=== PATIENT | male | born 1960 | race Caucasian/White ===

== ENCOUNTER 2017-06-17 22:53 | Emergency (ER) | payer MEDICAID ==
[~2017-06-17] VITALS: Ht 193 cm; Wt 102.1 kg
[~2017-06-17 22:53] MED LIST: ALBU0.5N2; CITA-30; RIMRON
[2017-06-17 23:07] VITALS: BP 152/96
[2017-06-17 23:58] LABS: Basophils # (auto) 0.1 uL; Eosinophils # (auto) 0.1 uL; Eosinophils % (auto) 0.7 % (0.0-7.0); Hematocrit 48.3 % (41.0-53.0); Hemoglobin 16.1 g/dL (13.5-17.5); Lymphocytes # (auto) 1.2 uL; Lymphocytes % (auto) 9.1 % (10.0-50.0); Mean Corpuscular Hemoglobin 29.8 pg (28.0-32.0); Mean Corpuscular Hgb Conc. 33.3 g/dL (32.0-36.0); Mean Corpuscular Volume 89.4 fL (80.0-100.0); Mean Platelet Volume 7.8 fL (6.9-10.8); Monocytes # (auto) 1.1 uL; Neutrophils # (auto) 10.7 uL; Neutrophils % (auto) 81.2 % (37.0-80.0); Platelet Count (auto) 359 10^3/uL (140-450); Red Cell Distribution Width 13.7 % (11.8-14.3); White Blood Cell 13.2 10^3/uL (4.4-10.8)
[2017-06-18 00:12] LABS: BUN/Creatinine Ratio 14.7; Calcium 9.6 mg/dL (8.5-10.1); Potassium 4.2 mmol/L (3.5-5.1)
[2017-06-18 00:14] LABS: INR 0.97 (0.9-1.15); Partial Thromboplastin Time 24.7 sec (22.64-33.71); Prothrombin Time 10.6 sec (9.37-12.3)
[2017-06-18 00:15] LABS: Bilirubin, Total 1.4 mg/dL (0.2-1.0); Total Protein 8.3 g/dL (6.4-8.2)
[2017-06-18 02:03] LABS: Urine Bilirubin Negative (Negative); Urine Blood Negative /uL (Negative); Urine Color Yellow (Yellow); Urine Glucose Normal (Normal); Urine Ketone TRACE (Negative); Urine Mucus FEW (None Seen); Urine Nitrite Negative (Negative); Urine RBC 1 /hpf (0 - 3); Urine Urobilinogen Normal (Negative); Urine pH 5.5 (5.0-8.0)
== END 2017-06-18 05:34 | disposition left against medical advice (07) ==
LOC: ER 22:56
DX: R10.84 Generalized abdominal pain (principal); Z53.21 Procedure and treatment not carried out due to patient leaving prior to being seen by health care provider
CPT/HCPCS: 36415; 74176; 80053; 81001; 82150; 83690; 85025; 85610; 85730

== ENCOUNTER 2020-02-29 19:57 | Emergency (ER) | payer MEDICAID ==
[~2020-02-29] VITALS: Ht 193 cm; Wt 102.1 kg
[~2020-02-29 19:57] MED LIST changes: -CITA-30; -RIMRON
[2020-02-29] MEDS ORDERED: SODIUM CHLORIDE 0.9% 1,000 ML IV ONE (20:30)
[2020-02-29] MEDS ORDERED: GLUCAGON HYDROCHLORIDE (RDNA) 1 MG VIAL IV ONE (20:30)
[2020-02-29] MEDS ORDERED: diphenhdrAMINE HCL 50 MG/1 ML VL ONE (23:03)
[2020-02-29] MEDS ORDERED: HYDROcodone-ACET 10/325MG TAB PO ONE (23:15)
[2020-02-29] MEDS: MIDAZOLAM HCL 5 MG/ML-1ML VIAL ONE ×3 (23:17→23:23)
[2020-02-29] MEDS: fentaNYL CITRATE 100 MCG/2 ML VL ONE ×2 (23:17→23:20)
[2020-03-01 01:40] VITALS: BP 138/83
== END 2020-03-01 01:50 | disposition home or self-care (01) ==
LOC: ER 20:02
DX: T18.128A Food in esophagus causing other injury, initial encounter (principal); J44.9 Chronic obstructive pulmonary disease, unspecified; Z79.899 Other long term (current) drug therapy; X58.XXXA Exposure to other specified factors, initial encounter; Y93.89 Activity, other specified; Y92.89 Other specified places as the place of occurrence of the external cause; Y99.8 Other external cause status
CPT/HCPCS: 43247; 96361; 96374; 99152; 99285; J1200; J1610; J2250; J3010; 43235

== ENCOUNTER 2025-06-11 12:02 | Inpatient (IN) | payer MEDICAID ==
[~2025-06-11] VITALS: Ht 193 cm; Wt 90.1 kg
[2025-06-11] MEDS: IPRATROPIUM BROM 0.5 MG/2.5ML INH SOL NEB ONE (12:44)
[2025-06-11] MEDS: ALBUTEROL SULF 2.5 MG/0.5ML(0.5%) NEB SOLN NEB ONE (12:45)
--- NOTE | 2025-06-11 12:56 | ED.PDOC ---
SOB-HPI HPI Comments This is a 64 year old male presenting to the ED with chief complaint of SOB. Patient reports that he has been experiencing SOB with associated coughing, chest pain, dizziness, and lightheadedness for the past 3 days. Patient noted to be 90% on RA. Patient states that he has history of COPD and CHF. Patient denies any N/V, fever, chills, headache, or syncope. Chief Complaint: Shortness of Breath Time Seen by MD: 12:52 Primary Care Provider: unk Reviewed notes: Nurses Notes, Medications, Allergies Information Source: Patient, Relative (Child) Mode of Arrival: Ambulatory Severity: Moderate Timing: Days Duration: Since onset Context: At Rest PE Risk Factors: None History of: COPD, CHF Prehospital treatment: None Modifying Factors: Nothing Associated Signs and Symptoms: Chest Pain Quality: Tightness Radiation: No Radiation Location: Substernal Past Medical History PAST MEDICAL HISTORY: Asthma, CHF, COPD Surgical History: Denies all surgeries Family History Family History: Reviewed,noncontributory to illness Social History Smoker: Non-Smoker Alcohol: Denies ETOH Use Drugs: Denies Drug Use Lives In: Home Constitutional: denies: chills, diaphoresis, fatigue, fever, malaise, sweats, weakness, others EENTM: denies: blurred vision, double vision, ear bleeding, ear discharge, ear drainage, ear pain, ear ringing, eye pain, eye redness, hearing loss, mouth pain, mouth swelling, nasal discharge, nose bleeding, nose congestion, nose pain, photophobia, tearing, throat pain, throat swelling, voice changes, others Respiratory: reports: cough, shortness of breath; denies: hemoptysis, orthopnea, SOB at rest, SOB with excertion, stridor, wheezing, others Cardiovascular: reports: chest pain, lightheadedness; denies: dizzy spells, diaphoresis, Dyspnea on exertion, edema, irregular heart beat, left arm pain, palpitations, PND, syncope, others Gastrointestinal: denies: abdomen distended, abdominal pain, blood streaked bowels, constipated, diarrhea, dysphagia, difficulty swallowing, hematemesis, melena, nausea, poor appetite, poor fluid intake, rectal bleeding, rectal pain, vomiting, others Genitourinary: denies: burning, dysuria, flank pain, frequency, hematuria, incontinence, penile discharge, penile sore, pain, testicle pain, testicle swelling, urgency, others Neurological: reports: dizziness; denies: fainting, headache, left sided numbness, left sided weakness, numbness, paresthesia, pre-existing deficit, right sided numbness, right sided weakness, seizure, speech problems, tingling, tremors, weakness, others Musculoskeletal: denies: back pain, gout, joint pain, joint swelling, muscle pain, muscle stiffness, neck pain, others Integumetry: denies: bruises, change in color, change in hair/nails, dryness, laceration, lesions, lumps, rash, wounds, others Allergic/Immunocompromised: denies: Difficulty Healing, Frequent Infections, Hives, Itching, others Hematologic/Lymphatic: denies: anemia, blood clots, easy bleeding, easy bruising, swollen glands, others Endocrine: denies: excessive hunger, excessive sweating, excessive thirst, excessive urination, flushing, intolerance to cold, intolerance to heat, unexplained weight gain, unexplained weight loss, others Psychiatric: denies: anxiety, bipolar disorder, depression, hopeless, panic disorder, schizophrenia, sleepless, suicidal, others All Other Systems: Reviewed and Negative Physical Exam General Appearance: No Apparent Distress, Normal HEENT: Normal ENT Inspection, Pharynx Normal, TMs Normal Neck: Full Range of Motion, Non-Tender, Normal, Normal Inspection Respiratory: Chest Non-Tender, Lungs Clear, No Accessory Muscle Use, Wheezing, Other (Tachypneic, Coarse breath sounds) Cardiovascular: No Edema, No JVD, No Murmur, No Gallop, Normal Peripheral Pulses, Tachycardia Breast Exam: Deferred Gastrointestinal: No Organomegaly, Non Tender, No Pulsatile Mass, Normal Bowel Sounds, Soft Genitalia: Deferred Pelvic: Deferred Rectal: Deferred Extremities: No calf tenderness, Normal capillary refill, Normal inspection, Normal range of motion, Non-tender, No pedal edema Musculoskeletal : Apperance: Normal Neurologic: Alert, net web application developer II-XII nml as Tested, No Motor Deficits, Normal Affect, Normal Mood, No Sensory Deficits Cerebellar Function: Normal Reflexes: Normal Skin: Dry, Normal Color, Warm Lymphatic: No Adenopathy Was a procedure done? Was a procedure done?: No Differential Dx Differential Diagnosis: CHF, COPD, Pneumonia X-Ray, Labs, Meds, VS Vital Signs Date Time Temp Pulse Resp B/P (MAP) Pulse Ox O2 Delivery O2 Flow Rate FiO2 06/11/25 13:00 98.0 95 20 124/70 (88) 96 98.0 06/11/25 13:00 101 20 94 Nasal Cannula* 2 28 06/11/25 12:47 24 90 Nasal Cannula* 2 28 06/11/25 12:23 98 06/11/25 12:04 97.8 100 20 134/89 90 97.8 Lab Test 06/11/25 13:54 06/11/25 13:42 06/11/25 12:36 Range/Units Influenza Type A Antigen Negative Negative Influenza Type B Antigen Negative Negative SARS-CoV-2 Antigen (Rapid) Negative NEGATIVE Troponin I High Sensitivity 25 23 </=54 ng/L White Blood Count 6.1 4.4-10.8 10^3/uL Red Blood Count 5.29 4.5-5.90 10^6/uL Hemoglobin 15.6 13.5-17.5 g/dL Hematocrit 47.0 41.0-53.0 % Mean Corpuscular Volume 88.9 80.0-100.0 fL Mean Corpuscular Hemoglobin 29.6 28.0-32.0 pg Mean Corpuscular Hemoglobin Concent 33.2 32.0-36.0 g/dL Red Cell Distribution Width 13.9 11.8-14.3 % Platelet Count 372 140-450 10^3/uL Mean Platelet Volume 7.3 6.9-10.8 fL Neutrophils (%) (Auto) 69.6 37.0-80.0 % Lymphocytes (%) (Auto) 13.9 10.0-50.0 % Monocytes (%) (Auto) 13.5 H 0.0-12.0 % Eosinophils (%) (Auto) 2.0 0.0-7.0 % Basophils (%) (Auto) 1.0 0.0-2.0 % Neutrophils # (Auto) 4.3 1.6-8.6 10 ^3/uL Lymphocytes # (Auto) 0.8 0.4-5.4 10 ^3/uL Monocytes # (Auto) 0.8 0-1.3 10 ^3/uL Eosinophils # (Auto) 0.1 0-0.8 10 ^3/uL Basophils # (Auto) 0.1 0-0.2 10 ^3/uL Nucleated Red Blood Cells 0.2 % Sodium Level 141 136-145 mmol/L Potassium Level 4.6 3.5-5.1 mmol/L Chloride Level 100 98-107 mmol/L Carbon Dioxide Level 32 H 20-31 mmol/L Anion Gap 9 5-15 Blood Urea Nitrogen 16 9-23 mg/dL Creatinine 1.55 H 0.700-1.30 mg/dL Glomerular Filtration Rate Calc 50 >90 mL/min BUN/Creatinine Ratio 10.3 10.0-20.0 Serum Glucose 98 74-106 mg/dL Calcium Level 8.8 8.7-10.4 mg/dL B-Type Natriuretic Peptide 52.01 0-100 pg/mL Current Medications Medications (Trade) Dose Ordered Sig/Rubens Route Start Time Stop Time Status Last Admin Albuterol (Ventolin Medneb) 5 mg ONCE ONCE NEB 06/11/25 12:30 06/11/25 12:31 DC 06/11/25 12:45 Ipratropium [place] (Atrovent Medneb) 0.5 mg ONCE ONCE NEB 06/11/25 12:30 06/11/25 12:31 DC 06/11/25 12:44 Guaifenesin/ Dextromethorphan (Robitussin-Dm Liquid) 10 ml Q4HP PRN PO 06/11/25 13:45 06/11/25 13:48 Methylprednisolone Sodium Succinate (Solu Medrol) 125 mg ONCE ONCE IV 06/11/25 14:00 06/11/25 14:01 DC 06/11/25 13:57 Time of 1ST Reevaluation: 13:50 Reevaluation 1ST: Improved Patient Education/Counseling: Diagnosis, Treatment Family Education/Counseling: No Family Present SEPSIS Sepsis Screen Date sepsis recognized/suspect: Jun 11, 2025 Time Sepsis recognized/suspect: 1206 Recent Procedure: No On Antibiotic Therapy: No Respiratory Rate >20: No Heart Rate >90: Yes Temp<36 C (96.8 F) or >38.3 C: No SBP <90 or MAP <65 mmHG: No New Acute Mental Status Change: No Is the patient on CPAP, BIPAP,: No Physician Orders Chest Portable (06/11/25 12:20) Electrocardigram (06/11/25 12:20) Troponin-I Hs (06/11/25 15:20) Electrocardigram (06/11/25 13:20) Electrocardigram (06/11/25 15:20) Guaifenesin-Dextromet Liquid (Robitussin (06/11/25 13:45) Vital Signs Date Time Temp Pulse Resp B/P (MAP) Pulse Ox O2 Delivery O2 Flow Rate FiO2 06/11/25 13:00 98.0 95 20 124/70 (88) 96 98.0 06/11/25 13:00 101 20 94 Nasal Cannula* 2 28 06/11/25 12:47 24 90 Nasal Cannula* 2 28 06/11/25 12:23 98 06/11/25 12:04 97.8 100 20 134/89 90 97.8 Laboratory Tests Test 06/11/25 12:36 White Blood Count 6.1 10^3/uL (4.4-10.8) Medications Medications Dose Ordered Sig/Rubens Route Start Time Stop Time Status Last Admin Dose Admin Albuterol 5 mg ONCE ONCE NEB 06/11/25 12:30 06/11/25 12:31 DC 06/11/25 12:45 Guaifenesin/ Dextromethorphan 10 ml Q4HP PRN PO 06/11/25 13:45 06/11/25 13:48 Ipratropium [place] 0.5 mg ONCE ONCE NEB 06/11/25 12:30 06/11/25 12:31 DC 06/11/25 12:44 Methylprednisolone Sodium Succinate 125 mg ONCE ONCE IV 06/11/25 14:00 06/11/25 14:01 DC 06/11/25 13:57 Departure 1 Departure Time of Disposition: 16:09 (Patient presented with acute shortness of breath concerning for acute on chronic COPD Exacerbation, Pneumonia, ACS, CHF, Pneumothorax. Less likely PE, Dissection. Data: 1. I ordered and reviewed the result of at least 3 labs including a CBC, BMP, and Troponin. 2. I independently interpreted the following tests: Chest X-ray shows .Risk:This patient has a high risk of morbidity due to further diagnostic testing or treatment and may suffer from respiratory or cardiac etiology . Workup reveals a likely COPD Exacerbation and patient should be admitted for further workup. and possible expert consultation.) Impression: Primary Impression: Acute and chronic respiratory failure Additional Impressions: Acute on chronic systolic heart failure Dyspnea on exertion COPD (chronic obstructive pulmonary disease) Disposition: 09 ADMITTED INPATIENT Admit to: Tele Condition: Guarded Critical Care Note Critical Care Time?: Yes Critical care comment: Acute on chronic respiratory failure Authorized and Performed by: Rodney Silva MD Total critical care time: Approximately 38 minutes Due to a high probability of clinically significant, life threatening deterioration, the patient required my highest level of preparedness to intervene emergently and I personally spent this critical care time directly and personally managing the patient. This critical care time included obtaining a history; examining the patient; pulse oximetry; ordering and review of studies; arranging urgent treatment with development of a management plan; evaluation of patient's response to treatment; frequent reassessment; and, discussions with other providers. This critical care time was performed to assess and manage the high probability of imminent, life-threatening deterioration that could result in multi-organ failure. It was exclusive of separately billable procedures and treating other patients and teaching time. Please see my other sections and the rest of the note for further information on patient assessment and treatment. Stability Stability form required: No Heart Score Heart Score: Heart Score Response (Comments) Value History Highly Suspicious 2 EKG Normal 0 Age 45-64 1 Risk Factors >3 or Hx ASHD 2 Troponin 1-2 x's Normal limit 1 Total 6 I personally scribed for RODNEY SILVA MD ([email or web address]) on 06/11/25 at 12:55. Electronically submitted by Gibson Parker ([email or web address]). RODNEY SILVA MD Jun 11, 2025 12:55
[2025-06-11 13:00] VITALS: PULSE 101; RESP 20; O2SAT 94
[2025-06-11 13:00] LABS: Hematocrit 47.0 % (41.0-53.0); Hemoglobin 15.6 g/dL (13.5-17.5); Mean Corpuscular Hemoglobin 29.6 pg (28.0-32.0); Mean Corpuscular Volume 88.9 fL (80.0-100.0); Nucleated Red Blood Cells % 0.2 %
[2025-06-11 13:05] LABS: Chloride 100 mmol/L (98-107); Potassium 4.6 mmol/L (3.5-5.1); Sodium 141 mmol/L (136-145)
[2025-06-11 13:06] LABS: Anion Gap 9 (5-15)
[2025-06-11 13:07] LABS: Calcium 8.8 mg/dL (8.7-10.4)
--- NOTE | 2025-06-11 13:08 | DVH ---
EXAM: XY CHEST PORTABLE HISTORY: sob COMPARISON: None TECHNIQUE: Portable upright AP view of the chest was performed. FINDINGS: No pneumothorax, consolidative infiltrates, or pulmonary edema. There is mild central peribronchial thickening. The heart is borderline enlarged. IMPRESSION: Mild Reactive airways disease. The lungs are otherwise clear.
[2025-06-11 13:09] LABS: Carbon Dioxide 32 mmol/L (20-31)
[2025-06-11 13:11] LABS: BUN/Creatinine Ratio 10.3 (10.0-20.0); Blood Urea Nitrogen 16 mg/dL (9-23); Glucose 98 mg/dL (74-106)
[2025-06-11] MEDS: guaiFENesin-DM 100/10mg/5ml SYR PO PRN (13:48)
[2025-06-11] MEDS: methylPREDNISolone SOD SUCC 125 MG/2 ML VL IV ONE (13:57)
[2025-06-11] MEDS: guaiFENesin-DM 100/10mg/5ml SYR ONE (14:31)
[2025-06-11 15:24] LABS: COVID19 ANTIGEN SOFIA FIA NEGATIVE (NEGATIVE)
[2025-06-11 16:49] VITALS: BP 136/77; PULSE 94; RESP 18; TEMP 98; O2SAT 98
--- NOTE | 2025-06-11 20:16 | DVHHPRES ---
History of Present Illness Resident Creating Document: LATOYA PAK RESIDENT History of Present Illness 64 year old male with PMH of CHF, COPD presented to the ED with chief complaint of dyspnea. He reported that he has been experiencing SOB with associated coughing, chest pain, dizziness, and lightheadedness for the past 3 days. Pt is currently on 2L o2 through nasal canula. He mentioned associated orthopnea. He described his chest pain as sharp, substernal, non radiating, increased on deep breathing. He denied any fever, chills, headache, or syncope. Past Medical History Asthma, CHF, COPD Surgical History: Denies recent surgery Family History noncontributory to illness Social History denied smoking, alcohol, marijuana Medication history albuterol Review of Systems Review of Systems as described in the HPI Allergies: Coded Allergies: NO KNOWN ALLERGIES (Unverified , 11/11/10) Medications Current Medications Medications Dose Ordered Sig/Rubens Route Start Time Stop Time Status Last Admin Dose Admin Guaifenesin/ Dextromethorphan 10 ml Q4HP PRN PO 06/11/25 13:45 06/11/25 18:53 10 ML Albuterol 2.5 mg Q4HPRN PRN NEB 06/11/25 16:45 Ipratropium [place] 0.5 mg Q4HPRN PRN NEB 06/11/25 16:45 Ceftriaxone Sodium 50 ml @ 100 mls/hr DAILY@09 IV 06/12/25 09:00 Methylprednisolone Sodium Succinate 40 mg BID IV 06/11/25 22:00 Exam Vital Signs Vital Signs Date Time Temp Pulse Resp B/P (MAP) Pulse Ox O2 Delivery O2 Flow Rate FiO2 06/11/25 19:30 98.8 103 23 156/101 (119) 97 98.8 06/11/25 16:49 2.0 28 06/11/25 13:00 Nasal Cannula* Exam Examination General Appearance: Alert, Oriented X3, Cooperative, No acute distress HEENT: EOMI Respiratory: End expiratory wheezing Cardiovascular: Regular rate, Normal S1, Normal S2 Abdominal: Normal bowel sounds Extremities: No cyanosis, No edema, Normal pulses, No tenderness/swelling Skin: No rashes, No breakdown Neuro: Normal gait, Normal speech, Strength at 5/5 X4 ext, Normal tone, Sensation intact, Cranial nerves 3-12 NL, Reflexes 2+ Psych/Mental Status: Mental status NL, Mood NL Labs/Xrays Labs Test 06/11/25 18:40 06/11/25 16:58 06/11/25 13:54 06/11/25 12:36 Range/Units Troponin I High Sensitivity 21 </=54 ng/L B-Type Natriuretic Peptide 43.32 0-100 pg/mL Influenza Type A Antigen Negative Negative Influenza Type B Antigen Negative Negative SARS-CoV-2 Antigen (Rapid) Negative NEGATIVE White Blood Count 6.1 4.4-10.8 10^3/uL Red Blood Count 5.29 4.5-5.90 10^6/uL Hemoglobin 15.6 13.5-17.5 g/dL Hematocrit 47.0 41.0-53.0 % Mean Corpuscular Volume 88.9 80.0-100.0 fL Mean Corpuscular Hemoglobin 29.6 28.0-32.0 pg Mean Corpuscular Hemoglobin Concent 33.2 32.0-36.0 g/dL Red Cell Distribution Width 13.9 11.8-14.3 % Platelet Count 372 140-450 10^3/uL Mean Platelet Volume 7.3 6.9-10.8 fL Neutrophils (%) (Auto) 69.6 37.0-80.0 % Lymphocytes (%) (Auto) 13.9 10.0-50.0 % Monocytes (%) (Auto) 13.5 H 0.0-12.0 % Eosinophils (%) (Auto) 2.0 0.0-7.0 % Basophils (%) (Auto) 1.0 0.0-2.0 % Neutrophils # (Auto) 4.3 1.6-8.6 10 ^3/uL Lymphocytes # (Auto) 0.8 0.4-5.4 10 ^3/uL Monocytes # (Auto) 0.8 0-1.3 10 ^3/uL Eosinophils # (Auto) 0.1 0-0.8 10 ^3/uL Basophils # (Auto) 0.1 0-0.2 10 ^3/uL Nucleated Red Blood Cells 0.2 % Sodium Level 141 136-145 mmol/L Potassium Level 4.6 3.5-5.1 mmol/L Chloride Level 100 98-107 mmol/L Carbon Dioxide Level 32 H 20-31 mmol/L Anion Gap 9 5-15 Blood Urea Nitrogen 16 9-23 mg/dL Creatinine 1.55 H 0.700-1.30 mg/dL Glomerular Filtration Rate Calc 50 >90 mL/min BUN/Creatinine Ratio 10.3 10.0-20.0 Serum Glucose 98 74-106 mg/dL Calcium Level 8.8 8.7-10.4 mg/dL SEPSIS Sepsis Screen Date sepsis recognized/suspect: Jun 11, 2025 Time Sepsis recognized/suspect: 1205 Recent Procedure: No On Antibiotic Therapy: No Respiratory Rate >20: No Heart Rate >90: Yes Temp<36 C (96.8 F) or >38.3 C: No SBP <90 or MAP <65 mmHG: No New Acute Mental Status Change: No Is the patient on CPAP, BIPAP,: No Physician Orders Chest Portable (06/11/25 12:20) Electrocardigram (06/11/25 12:20) Electrocardigram (06/11/25 13:20) Electrocardigram (06/11/25 15:20) Guaifenesin-Dextromet Liquid (Robitussin (06/11/25 13:45) Cardiac Diet-2gna,Lofat,Lochol (06/11/25 Dinner) Admit (06/11/25 16:38) Allergies (06/11/25 16:38) Code Status (06/11/25 16:38) Complete Blood Count (06/12/25 04:00) Comprehensive Metabolic Panel (06/12/25 04:00) Pt Request For Service (06/11/25 16:38) Oxygen By Nasal Cannula (06/11/25 16:38) Stat Ekg For Chest Pain (06/11/25 16:38) Notify Md Of Changes From Base (06/11/25 16:38) Revival Clerk For 24 Hours (06/11/25 16:38) Emergency Dysrhythmia Protocol (06/11/25 16:38) Rhythm Strips Once Every Shift (06/11/25 16:38) Albuterol Medneb (Ventolin Medneb) (06/11/25 16:45) Ipratropium Medneb (Atrovent Medneb) (06/11/25 16:45) Ceftriaxone 1gm/50ml (Rocephin) (06/12/25 09:00) Methylprednisolone Sod Succ (Solu Medrol (06/11/25 22:00) Mrsa Screen (06/11/25 16:38) Rapid Influenza A&B (06/11/25 16:38) Urinalysis (06/11/25 16:38) Drug Screen (06/11/25 16:38) D-Dimer (06/11/25 20:13) Vital Signs Date Time Temp Pulse Resp B/P (MAP) Pulse Ox O2 Delivery O2 Flow Rate FiO2 06/11/25 19:30 98.8 103 23 156/101 (119) 97 98.8 06/11/25 17:00 98.2 96 18 150/94 (112) 99 98.2 06/11/25 16:49 98.0 94 18 136/77 98 2.0 28 98.0 06/11/25 16:00 97 06/11/25 15:00 94 18 136/77 (96) 98 06/11/25 13:00 98.0 95 20 124/70 (88) 96 98.0 06/11/25 13:00 101 20 94 Nasal Cannula* 2 28 06/11/25 12:47 24 90 Nasal Cannula* 2 28 06/11/25 12:23 98 Laboratory Tests Test 06/11/25 12:36 White Blood Count 6.1 10^3/uL (4.4-10.8) Medications Medications Dose Ordered Sig/Rubens Route Start Time Stop Time Status Last Admin Dose Admin Albuterol 5 mg ONCE ONCE NEB 06/11/25 12:30 06/11/25 12:31 DC 06/11/25 12:45 5 MG Ceftriaxone Sodium 50 ml @ 100 mls/hr ONCE ONCE IV 06/11/25 16:45 06/11/25 17:14 DC 06/11/25 18:47 100 MLS/HR Guaifenesin/ Dextromethorphan 10 ml Q4HP PRN PO 06/11/25 13:45 06/11/25 18:53 10 ML Ipratropium [place] 0.5 mg ONCE ONCE NEB 06/11/25 12:30 06/11/25 12:31 DC 06/11/25 12:44 0.5 MG Methylprednisolone Sodium Succinate 125 mg ONCE ONCE IV 06/11/25 14:00 06/11/25 14:01 DC 06/11/25 13:57 125 MG Assessment/Plan Assessment/Plan Assessment/plan # Acute hypoxic resp failure due to COPD exacerbation # Acute COPD exacerbation Albuterol/ipratropium p.r.n. IV methylprednisolone IV ceftriaxone D-dimer to rule out PE # ?MIRTA over CKD monitor kidney function Avoiding IV fluids because of possible CHF exacerbation # CHF, stable. ?exacerbation Resume home meds echo bnp # Hypertension Resume home meds DVT prophylaxis lovenox Code status discussed for >21 min, full code Case discussion with Plan discussed with: Patient, Other My Orders Orders - LATOYA PAK RESIDENT Procedure Category Date Status Time Admit ADMIT 06/11/25 Transmitted 16:38 Allergies KRISTEL 06/11/25 In Process 16:38 Code Status CODE 06/11/25 Transmitted 16:38 Complete Blood Count LAB 06/12/25 Verified 04:00 Comprehensive LAB 06/12/25 Verified Metabolic Panel 04:00 Pt Request For Service PT 06/11/25 Logged 16:38 Oxygen By Nasal RT 06/11/25 Transmitted Cannula 16:38 Stat Ekg For Chest KRISTEL 06/11/25 In Process Pain 16:38 Notify Of Changes KRISTEL 06/11/25 In Process From Base 16:38 Revival Clerk For KRISTEL 06/11/25 In Process 24 Hours 16:38 Emergency Dysrhythmia KRISTEL 06/11/25 In Process Protocol 16:38 Rhythm Strips Once KRISTEL 06/11/25 In Process Every Shift 16:38 Albuterol Medneb PHA 06/11/25 In Process (Ventolin Medneb) 16:45 Ipratropium Medneb PHA 06/11/25 In Process (Atrovent Medneb) 16:45 Ceftriaxone 1gm/50ml PHA 06/12/25 In Process (Rocephin) 09:00 Methylprednisolone PHA 06/11/25 In Process Sod Succ (Solu Medrol 22:00 Mrsa Screen CE 06/11/25 Logged 16:38 Rapid Influenza A&B LAB 06/11/25 Logged 16:38 Urinalysis LAB 06/11/25 Logged 16:38 Drug Screen LAB 06/11/25 Logged 16:38 D-Dimer LAB 06/11/25 Verified 20:13 Date of Service: Jun 11, 2025 Billing Provider: KATHY RAHMAN MD Common Visit Codes: [id number] INP/OBS CARE (HIGH) Secondary Visit Codes: [id number] CARE PLAN 30 MINUTES LATOYA PAK RESIDENT Jun 11, 2025 20:16
[2025-06-11 21:14] LABS: Bilirubin, Direct 0.2 mg/dL (<0.3); Cholesterol 178.0 mg/dL (< 200); HDL Cholesterol 42.0 mg/dL (40-59); Triglycerides 79.0 mg/dL (< 150)
[2025-06-11 21:17] LABS: Alanine Aminotransferase 21.0 U/L (7-40); Albumin 4.0 g/dL (3.2-4.8); Alkaline Phosphatase 99.0 U/L (46-116); Bilirubin, Total 0.7 mg/dL (0.2-1.0); Total Protein 6.9 g/dL (5.7-8.2)
[2025-06-11 21:53] LABS: INR 0.99 (0.9-1.15); Partial Thromboplastin Time 29.1 SEC (24.5-34.5); Prothrombin Time 10.5 sec (9.3-11.8)
[2025-06-11] MEDS: methylPREDNISolone SOD SUCC 40 MG/ML VL IV SCH (22:39)
[2025-06-12] VITALS (10 sets, daily range): BP systolic 122–155; BP diastolic 83–102; PULSE 87–99; RESP 17–19; TEMP 97.5–97.7; O2SAT 90–96
[2025-06-12 03:27] LABS: Hematocrit 47.5 % (41.0-53.0); Hemoglobin 15.9 g/dL (13.5-17.5); Mean Corpuscular Hemoglobin 29.9 pg (28.0-32.0); Mean Corpuscular Volume 89.2 fL (80.0-100.0); Nucleated Red Blood Cells % 0.2 %
[2025-06-12 03:46] LABS: Alanine Aminotransferase 25 U/L (7-40); Albumin 4.1 g/dL (3.2-4.8); Alkaline Phosphatase 100 U/L (46-116); Anion Gap 9 (5-15); BUN/Creatinine Ratio 13.9 (10.0-20.0); Bilirubin, Total 0.5 mg/dL (0.2-1.0); Blood Urea Nitrogen 20 mg/dL (9-23); Carbon Dioxide 29 mmol/L (20-31); Chloride 102 mmol/L (98-107); Potassium 4.6 mmol/L (3.5-5.1); Sodium 140 mmol/L (136-145); Total Protein 7.0 g/dL (5.7-8.2)
[2025-06-12 03:47] LABS: Calcium 8.7 mg/dL (8.7-10.4); Glucose 149 mg/dL (74-106)
[2025-06-12] MEDS: ENOXAPARIN SOD 40 MG/0.4 ML SYRINGE SC SCH (09:01)
--- NOTE | 2025-06-12 10:27 | DVHPN2 ---
Subjective sleeping/no complaints Changes from previous H/P or p: No Changes Objective Vitals Vital Signs Date Time Temp Pulse Resp B/P (MAP) Pulse Ox O2 Delivery O2 Flow Rate FiO2 06/12/25 09:00 97.6 96 18 155/102 (119) 91 97.6 06/12/25 05:03 Room Air* 0 21 Intake/Output Intake and Output 06/12/25 07:00 Intake Total 50 ml Balance 50 ml Intake IV Total 50 ml General Appearance: Alert, Oriented X3, Cooperative, No acute distress HEENT: Atraumatic, PERRLA Lungs: Other (scattered wheezing) Cardiovascular: Regular rate, Normal S1, Normal S2 Abdomen: Normal bowel sounds, Soft, No tenderness, No hepatospenomegaly Musculoskeletal: Normal sensory function, Normal motor function Neuro: Normal gait, Normal speech, Strength at 5/5 X4 ext, Normal tone, S ensation intact Psych/Mental Status: Mental status NL, Mood NL Medications Current Medications Medications Dose Ordered Sig/Rubens Route Start Time Stop Time Status Last Admin Dose Admin Guaifenesin/ Dextromethorphan 10 ml Q4HP PRN PO 06/11/25 13:45 06/12/25 09:01 10 ML Albuterol 2.5 mg Q4HPRN PRN NEB 06/11/25 16:45 Ipratropium [place] 0.5 mg Q4HPRN PRN NEB 06/11/25 16:45 Ceftriaxone Sodium 50 ml @ 100 mls/hr DAILY@09 IV 06/12/25 09:00 06/12/25 08:59 100 MLS/HR Methylprednisolone Sodium Succinate 40 mg BID IV 06/11/25 22:00 06/12/25 09:00 40 MG Enoxaparin Sodium 40 mg DAILY SC 06/12/25 10:00 06/12/25 09:01 40 MG Nifedipine 60 mg DAILY PO 06/12/25 10:00 06/12/25 09:00 60 MG Laboratory Results Laboratory Tests 06/12/25 03:15 Chemistry Test 06/11/25 12:36 06/11/25 18:40 06/12/25 03:15 Calcium Level 8.8 mg/dL (8.7-10.4) 8.7 mg/dL (8.7-10.4) Albumin 4.0 g/dL (3.2-4.8) 4.1 g/dL (3.2-4.8) Total Protein 6.9 g/dL (5.7-8.2) 7.0 g/dL (5.7-8.2) Coagulation Test 06/11/25 21:05 Prothrombin Time 10.5 sec (9.3-11.8) Prothrombin Time INR 0.99 (0.9-1.15) Activated Partial Thromboplast Time 29.1 SEC (24.5-34.5) D-Dimer, Quantitative 0.35 mg/L FEU (0.0-0.49) Lipid panel Test 06/11/25 18:40 Cholesterol Level 178 mg/dL (< 200) HDL Cholesterol 42 mg/dL (40-59) Triglycerides Level 79 mg/dL (< 150) Cardiac Markers Test 06/11/25 12:36 06/11/25 16:58 B-Type Natriuretic Peptide 52.01 pg/mL (0-100) 43.32 pg/mL (0-100) LFT Test 06/11/25 18:40 06/12/25 03:15 Alanine Aminotransferase (ALT) 21 U/L (7-40) 25 U/L (7-40) Alkaline Phosphatase 99 U/L (46-116) 100 U/L (46-116) Aspartate Amino Transferase (AST) 29 U/L (13-40) 31 U/L (13-40) Direct Bilirubin 0.2 mg/dL (<0.3) Total Bilirubin 0.7 mg/dL (0.2-1.0) 0.5 mg/dL (0.2-1.0) HgA1c, TSH Test 06/11/25 12:36 06/11/25 18:40 Hemoglobin A1c 5.6 % A1C (<5.7) Thyroid Stimulating Hormone (TSH) 0.49 uIU/mL (0.55-4.78) L Labs and/or images reviewed: Labs reviewed by me, Image(s) reviewed by me Assessment/Plan Assessment/Plan copd exacerbation- coninue current meds/nebulizer- dd chf/ less likelyecho pending tobacco abuse- no signs of withdrawl- states only smokes< half ppd 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
--- NOTE | 2025-06-12 14:08 | DVHSR ---
APPROVED REPORT EXAM: Two-dimensional and M-mode echocardiogram with Doppler and color Doppler. Blood Pressure: 160/100 mmHg INDICATION History of CHF RISK FACTORS Height: 6'4", Weight: 211 DIMENSIONS LVDd 4.6 (3.8-5.7cm) LA (2D) 3.6 (1.9-4.0cm) Aortic Root 3.9 (2.0-3.7cm) LVDs 3.4 (2.5-4.0cm) LA (MM) (1.9-4.0cm) Aortic Cusp Exc 1.4 (1.5-2.0cm) EF (%) 50.0 (55-70%) Rt. Atrium 3.4 (1.9-4.0cm) Asc. Aorta cm IVSd 1.2 (0.7-1.1cm) RV (D) (1.8-2.4cm) PWd 1.1 (0.7-1.1cm) Mitral Valve Mitral Mitral Stenosis E/A ratio 0.0 2D MVA cm2 Aortic Valve Aortic Valve Aortic Stenosis V1 0.98m/s AO Mean GR. 7mmHg V2 1.82m/s AO Peak GR. 13mmHg LVOT Diameter 2.8 (1.8-2.4cm) Doppler TARA 3.31cm2 Pulmonic Valve V2 0.89m/s Conclusion 1)Low normal left ventricle systolic function with estimated left ventricular ejection fraction of 50%. Normal LV wall motion. 2)Normal right ventricle size and function 3)Mild aortic regurgitation 4)Trace mitral and tricuspid regurgitation
[2025-06-12 18:04] LABS: Opiate Scree,Urine Neg (NEGATIVE); Phencyclidine Screen, Urine Neg (NEGATIVE)
[2025-06-12 18:05] LABS: Amphetamine Screen, Urine Pos (NEGATIVE); Barbiturate Scree,Urine Neg (NEGATIVE); Benzodiazephine Screen, Urine Neg (NEGATIVE); Cannabinoid Screen, Urine Neg (NEGATIVE); Cocaine Screen, Urine Neg (NEGATIVE)
[2025-06-12 18:07] LABS: Urine Budding Yeast OCCASIONAL /hpf (None Seen); Urine Protein, UAD 1+ (Negative)
[2025-06-13] VITALS (13 sets, daily range): BP systolic 143–170; BP diastolic 95–108; PULSE 82–92; RESP 16–20; TEMP 97.5–97.8; O2SAT 92–100
[2025-06-13] MEDS: ALBUTEROL SULF 2.5 MG/0.5ML(0.5%) NEB SOLN NEB PRN (09:08)
[2025-06-13] MEDS: IPRATROPIUM BROM 0.5 MG/2.5ML INH SOL NEB PRN (09:08)
--- NOTE | 2025-06-13 10:15 | DVHPN2 ---
Subjective sleeping/no complaints Changes from previous H/P or p: No Changes (but more awake and perky than yesterday) Objective Vitals Vital Signs Date Time Temp Pulse Resp B/P (MAP) Pulse Ox O2 Delivery O2 Flow Rate FiO2 06/13/25 09:19 154/100 06/13/25 09:14 86 16 100 06/13/25 09:08 Room Air* 0 21 06/13/25 09:00 97.8 97.8 Intake/Output Intake and Output 06/13/25 07:00 Intake Total 1125 ml Output Total 900 ml Balance 225 ml Intake Oral 1075 ml IV Total 50 ml Output Urine Total 900 ml # Voids 3 # Bowel Movements 1 General Appearance: Alert, Oriented X3, Cooperative, No acute distress HEENT: Atraumatic, PERRLA Lungs: Other (scattered wheezing) Cardiovascular: Regular rate, Normal S1, Normal S2 Abdomen: Normal bowel sounds, Soft, No tenderness, No hepatospenomegaly Musculoskeletal: Normal sensory function, Normal motor function Neuro: Normal gait, Normal speech, Strength at 5/5 X4 ext, Normal tone, S ensation intact Psych/Mental Status: Mental status NL, Mood NL Medications Current Medications Medications Dose Ordered Sig/[place] Route Start Time Stop Time Status Last Admin Dose Admin Guaifenesin/ Dextromethorphan 10 ml Q4HP PRN PO 06/11/25 13:45 06/13/25 09:20 10 ML Albuterol 2.5 mg Q4HPRN PRN NEB 06/11/25 16:45 06/13/25 09:08 2.5 MG Ipratropium [place] 0.5 mg Q4HPRN PRN NEB 06/11/25 16:45 06/13/25 09:08 0.5 MG Ceftriaxone Sodium 50 ml @ 100 mls/hr DAILY@09 IV 06/12/25 09:00 06/13/25 09:18 100 MLS/HR Methylprednisolone Sodium Succinate 40 mg BID IV 06/11/25 22:00 06/13/25 09:18 40 MG Enoxaparin Sodium 40 mg DAILY SC 06/12/25 10:00 06/13/25 09:19 40 MG Nifedipine 60 mg DAILY PO 06/12/25 10:00 06/13/25 09:19 60 MG Laboratory Results Laboratory Tests 06/12/25 03:15 Urinalysis Test 06/12/25 17:20 Urine Color Light-yellow (Yellow) Urine Clarity Clear (Clear) Urine pH 6.0 (5.0-9.0) Urine Specific [place] 1.021 (1.001-1.035) Urine Protein 1+ (Negative) H Urine Ketones Negative (Negative) Urine Blood 1+ /uL (Negative) H Urine Nitrite Negative (Negative) Urine Bilirubin Negative (Negative) Urine Urobilinogen Normal mg/dL (Negative) Urine Leukocyte Esterase Negative /uL (Negative) Urine RBC 7 /hpf (0 - 3) Urine Microscopic WBC 2 /HPF (0-3) Urine Squamous Epithelial Cells Few /hpf (<5) Urine Bacteria None seen /hpf (None Seen) Urine Yeast (Budding) Occasional /hpf (None Urine Glucose Normal mg/dL (Normal) Labs and/or images reviewed: Labs reviewed by me Assessment/Plan Assessment/Plan copd exacerbation- coninue current meds/nebulizer- dd chf/ less likelyecho pending tobacco abuse- no signs of withdrawl- states only smokes< half ppd-offered nocotine patch-declines meth abuse- states sporadic- no signs of withdrawl-monitor ambulatory status--advised up in chair twice daily// Plan discussed with: Patient Date of Service: Jun 12, 2025 Billing Provider: DARA KAY MD Common Visit Codes: [id number] INP/OBS CARE(MOD) DARA KYA MD Jun 13, 2025 10:15
--- NOTE | 2025-06-13 17:43 | ECG ---
[facility] Test Date: 2025-06-11 Test Time: 12:23:11 Pat Name: LEODAN LYNN Department: [facility] ED Patient ID: [id number] Room: 0216T A Gender: M Ager Operator: TOBIAS : 1960 Requested By: RODNEY LINDER Order Number: [id number] Reading MD: Ray Velasquez Measurements Intervals [place] Rate: 98 P: 51 [place]: 169 QRS: 42 QRSD: 112 T: 32 QT: 379 QTc: 484 Interpretive Statements Sinus rhythm Borderline intraventricular conduction delay Borderline prolonged QT interval Electronically Signed On 06-17-2025 18:59:24 PST by Ray Velasquez Please click the below link to view image of tracing.
[2025-06-14 01:00] VITALS: BP 138/90; PULSE 84; RESP 17; TEMP 97.9; O2SAT 95
[2025-06-14 05:00] VITALS: BP 152/92; PULSE 83; RESP 17; TEMP 97.9; O2SAT 92
[2025-06-14 06:04] VITALS: PULSE 84; RESP 16; O2SAT 93
[2025-06-14 06:07] VITALS: O2SAT 93
[2025-06-14 06:08] VITALS: O2SAT 93
--- NOTE | 2025-07-23 12:13 | DVHDS2 ---
Discharge Summary Date of Admission Jun 11, 2025 at 16:38 Date of Discharge: Jun 14, 2025 Admitting Diagnosis copd exacerbation Wounds: nil Labs/Diagnostic Data: Laboratory Results Test 06/12/25 17:20 06/12/25 03:15 06/11/25 21:05 06/11/25 18:40 Urine Color Light-yellow (Yellow) Urine Clarity Clear (Clear) Urine pH 6.0 (5.0-9.0) Urine Specific [place] 1.021 (1.001-1.035) Urine Protein 1+ (Negative) Urine Ketones Negative (Negative) Urine Blood 1+ /uL (Negative) Urine Nitrite Negative (Negative) Urine Bilirubin Negative (Negative) Urine Urobilinogen Normal mg/dL (Negative) Urine Leukocyte Esterase Negative /uL (Negative) Urine RBC 7 /hpf (0 - 3) Urine Microscopic WBC 2 /HPF (0-3) Urine Squamous Epithelial Cells Few /hpf (<5) Urine Bacteria None seen /hpf (None Seen) Urine Yeast (Budding) Occasional /hpf (None Urine Glucose Normal mg/dL (Normal) Urine Opiates Screen Neg (NEGATIVE) Urine Fentanyl Screen Neg (NEGATIVE) Urine Barbiturates Screen Neg (NEGATIVE) Urine Phencyclidine Screen Neg (NEGATIVE) Urine Amphetamines Screen Pos (NEGATIVE) Urine Benzodiazepines Screen Neg (NEGATIVE) Urine Cocaine Screen Neg (NEGATIVE) Urine Cannabinoids Screen Neg (NEGATIVE) White Blood Count 5.8 10^3/uL (4.4-10.8) Red Blood Count 5.32 10^6/uL (4.5-5.90) Hemoglobin 15.9 g/dL (13.5-17.5) Hematocrit 47.5 % (41.0-53.0) Mean Corpuscular Volume 89.2 fL (80.0-100.0) Mean Corpuscular Hemoglobin 29.9 pg (28.0-32.0) Mean Corpuscular Hemoglobin Concent 33.5 g/dL (32.0-36.0) Red Cell Distribution Width 13.5 % (11.8-14.3) Platelet Count 404 10^3/uL (140-450) Mean Platelet Volume 7.2 fL (6.9-10.8) Neutrophils (%) (Auto) 82.2 % (37.0-80.0) Lymphocytes (%) (Auto) 12.5 % (10.0-50.0) Monocytes (%) (Auto) 4.9 % (0.0-12.0) Eosinophils (%) (Auto) 0.0 % (0.0-7.0) Basophils (%) (Auto) 0.4 % (0.0-2.0) Neutrophils # (Auto) 4.7 10 ^3/uL (1.6-8.6) Lymphocytes # (Auto) 0.7 10 ^3/uL (0.4-5.4) Monocytes # (Auto) 0.3 10 ^3/uL (0-1.3) Eosinophils # (Auto) 0 10 ^3/uL (0-0.8) Basophils # (Auto) 0 10 ^3/uL (0-0.2) Nucleated Red Blood Cells 0.2 % Sodium Level 140 mmol/L (136-145) Potassium Level 4.6 mmol/L (3.5-5.1) Chloride Level 102 mmol/L (98-107) Carbon Dioxide Level 29 mmol/L (20-31) Anion Gap 9 (5-15) Blood Urea Nitrogen 20 mg/dL (9-23) Creatinine 1.44 mg/dL (0.700-1.30) Glomerular Filtration Rate Calc 55 mL/min (>90) BUN/Creatinine Ratio 13.9 (10.0-20.0) Serum Glucose 149 mg/dL (74-106) Calcium Level 8.7 mg/dL (8.7-10.4) Total Bilirubin 0.5 mg/dL (0.2-1.0) Aspartate Amino Transferase (AST) 31 U/L (13-40) Alanine Aminotransferase (ALT) 25 U/L (7-40) Alkaline Phosphatase 100 U/L (46-116) Total Protein 7.0 g/dL (5.7-8.2) Albumin 4.1 g/dL (3.2-4.8) Prothrombin Time 10.5 sec (9.3-11.8) Prothrombin Time INR 0.99 (0.9-1.15) Activated Partial Thromboplast Time 29.1 SEC (24.5-34.5) D-Dimer, Quantitative 0.35 mg/L FEU (0.0-0.49) Direct Bilirubin 0.2 mg/dL (<0.3) Troponin I High Sensitivity 21 ng/L (</=54) Triglycerides Level 79 mg/dL (< 150) Cholesterol Level 178 mg/dL (< 200) LDL Cholesterol 121 mg/dL (< 100) HDL Cholesterol 42 mg/dL (40-59) Thyroid Stimulating Hormone (TSH) 0.49 uIU/mL (0.55-4.78) Test 06/11/25 16:58 06/11/25 13:54 06/11/25 12:36 B-Type Natriuretic Peptide 43.32 pg/mL (0-100) Influenza Type A Antigen Negative (Negative) Influenza Type B Antigen Negative (Negative) SARS-CoV-2 Antigen (Rapid) Negative (NEGATIVE) Hemoglobin A1c 5.6 % A1C (<5.7) Other Laboratory Tests 06/12/25 03:15 Brief Hx & Hospital Course: patient is 65 year old male patient with pmh of copd admitted for shortness of breath/cxr on admission was normal/ patient was treated with antibiotics/nebulizers and patient condition was improving//patient had echo done that was normal. pt was educated on meth side effects and offered treatment/rehab- pt declined and patient signed out ama on 06/14/25 at 8.00am Consults/Reason for consult nil Operations or Procedures nil Condition at Discharge: Fair Final Diagnosis/Problems List copd exacerbation-stable meth abuse- stable tobacco abuse h/o chf per patient history- normal echo Discharge Disposition: AMA Discharge Instruct/Medications Miscellaneous Medications Albuterol Sulfate (Albuterol Sulfate), (Reported) Discharge Statement: "Patient was advised to return to the ER or call 911 if any headaches, dizziness, shortness of breath, chest pain, abdominal pain, bleeding, fevers, or worsening of medical condition. Patient was counseled about treatment plan, medications, possible side effects, patientverbalized understanding. All questions were answered to the best of my ability. This discharge took greater then 30 minutes in planning, reviewing documentation, counseling the patient, and discussing with other team members." ASSESSMENT ASSESSMENT Assessment Date of Service: Jun 14, 2025 Billing Provider: DARA KYA MD Common Visit Codes: [id number] DISCH DAY <30MIN DARA KAY MD Jul 23, 2025 12:13
== END 2025-06-14 08:10 | disposition left against medical advice (07) | DRG 140 ==
LOC: ER 12:02 → OVERFLOW 16:38 → TELE-CENTR 06-12 04:43
PROVIDERS: ADMIT Student in an Organized Health Care Education/Training Program; ATTEND Emergency Medicine
DX: J44.1 Chronic obstructive pulmonary disease with (acute) exacerbation (principal); I11.0 Hypertensive heart disease with heart failure; I50.32 Chronic diastolic (congestive) heart failure; F15.10 Other stimulant abuse, uncomplicated; Z20.822 Contact with and (suspected) exposure to COVID-19; F17.210 Nicotine dependence, cigarettes, uncomplicated; Z53.29 Procedure and treatment not carried out because of patient's decision for other reasons; Z79.899 Other long term (current) drug therapy
CPT/HCPCS: 36415; 71045; 80048; 80053; 80061; 80076; 80307; 81001; 83036; 83880; 84443; 84484; 85025; 85379; 85610; 85730; 87081; 87426; 87804; 93005; 93306; 94640; 96374; 97163; 99291; G0378